=== PATIENT | female | born 1955 | race Caucasian/White ===

== ENCOUNTER 2016-09-26 14:54 | Emergency (ER) | payer OTHER ==
[~2016-09-26] VITALS: Ht 154.9 cm; Wt 78.9 kg
[2016-09-26 16:00] VITALS: BP 110/61
--- NOTE | 2016-09-26 16:16 | PHYS DOC ---
Past Medical History Past Medical History: Arthritis Past Surgical History: Hip Replacement, Hysterectomy, Other Additional Past Surgical Histo: female prolapse Alcohol Use: None Drug Use: None Adult General Chief Complaint Chief Complaint: ALLERGIC REACTION [facility] HPI Patient is a 61 year old female who presents with complaint of possible allergic reaction. Patient states that prior to coming in she started noticing hives all over her body. The patient was recently started on antibiotic treatment for a finger infection of her right middle finger. Patient states that she has been taking both Keflex and Bactrim. The patient started to notice a raised red rash around her face and neck. Patient states that this progressed to a full body rash area patient denied any shortness of breath or swelling of the throat. Patient took Benadryl prior to arrival. Patient states that currently her symptoms have improved. Patient denies any known drug allergies. Patient did not eat any unusual foods prior to symptom onset. Review of Systems Review of Systems Constitutional: Denies fever or chills [] Eyes: Denies change in visual acuity, redness, or eye pain [] HENT: Denies nasal congestion or sore throat [] Respiratory: Denies cough or shortness of breath [] Cardiovascular: No additional information not addressed in HPI [] GI: Denies abdominal pain, nausea, vomiting, bloody stools or diarrhea [] : Denies dysuria or hematuria [] Musculoskeletal: Denies back pain or joint pain [] Integument: Hives [] Neurologic: Denies headache, focal weakness or sensory changes [] Endocrine: Denies polyuria or polydipsia [] Allergies Allergies Allergies Coded Allergies Type Severity Reaction Last Updated Verified No Known Drug Allergies 09/26/16 No Physical Exam Physical Exam Constitutional: Well developed, well nourished, no acute distress, non-toxic appearance. [] HENT: Normocephalic, atraumatic, bilateral external ears normal, oropharynx moist, no oral exudates, nose normal. [] Eyes: PERRLA, EOMI, conjunctiva normal, no discharge. [] Neck: Normal range of motion, no tenderness, supple, no stridor. [] Cardiovascular:Heart rate regular rhythm, no murmur [] Lungs & Thorax: Bilateral breath sounds clear to auscultation [] Abdomen: Bowel sounds normal, soft, no tenderness, no masses, no pulsatile masses. [] Skin: Warm, dry, no erythema, no rash. [] Back: No tenderness, no CVA tenderness. [] Extremities: No tenderness, no cyanosis, no clubbing, ROM intact, no edema. [] Neurologic: Alert and oriented X 3, normal motor function, normal sensory function, no focal deficits noted. [] Current Patient Data Vital Signs Vital Signs Date Time Temp Pulse Resp B/P Pulse Ox O2 Delivery O2 Flow Rate FiO2 09/26/16 16:00 84 18 110/61 95 Room Air 09/26/16 15:05 98 98.0 EKG EKG Not performed [] Radiology/Procedures Radiology/Procedures Not performed [] Course & Med Decision Making Course & Med Decision Making Pertinent Labs and Imaging studies reviewed. (See chart for details) The patient does not display any symptoms at this time. The patient is currently taking prednisone which was prescribed by another physician. I advised that the patient discontinue use of Bactrim and Keflex in the continue her prednisone. Advised patient to use Zyrtec to help with itching and rash as she stated that she did not like the way Benadryl makes her feel. I did recommend that if the Zyrtec does not keep the rash under control that she may need to take one to 2 doses of Benadryl every 6 hours. Also recommended use of Pepcid or Zantac twice a day area and advised return to emergency department for any worsening symptoms. Recommended follow-up with primary doctor in 2 days for reevaluation. Patient voiced understanding and in agreement with treatment plan. Dragon Disclaimer Dragon Disclaimer This electronic medical record was generated, in whole or in part, using a voice recognition dictation system. Departure Departure Impression: Primary Impression: Urticaria Additional Impression: Allergic drug reaction Disposition: 01 HOME, SELF-CARE Condition: IMPROVED Patient Instructions: Hivtray Additional Instructions: 1. Discontinue your antibiotic medication. 2. Continue taking your prednisone tablets as prescribed. 3. Follow-up with Dr. Corado in the next 2 days. 4. You may take Zyrtec instead of Benadryl as needed for itching. 5. You may also take [id number] Zantac as directed on the packaging. 6. Return to the emergency department for any worsening symptoms. Problem Qualifiers Additional Impression: Allergic drug reaction Encounter type: initial encounter Qualified Code: T78.40XA - Allergy, unspecified, initial encounter BRENNA LOPEZ MD Sep 26, 2016 16:16
== END 2016-09-26 16:31 | disposition home or self-care (01) ==
LOC: ER 14:54
DX: L50.9 Urticaria, unspecified (principal); T78.40XA Allergy, unspecified, initial encounter; R21 Rash and other nonspecific skin eruption; X58.XXXA Exposure to other specified factors, initial encounter
CPT/HCPCS: 99281